=== PATIENT | male | born 1990 | race Caucasian/White ===

== ENCOUNTER 2017-02-01 22:48 | Emergency (ER) | payer MEDICARE, OTHER ==
--- NOTE | ~2017-02-01 | CR72 ---
[facility]. [facility] A Service of [facility] & [facility] / [facility] RADIOLOGY TEXT RESULTS PATIENT: RYAN SHEFFIELD JR LOCATION: SED : [birth year] UNIT #: [id number] AGE: [address]: Pop Hunter MD SEX: M ORDER DR: [id number] [place] [address] [id number] MR#: [id number] Acc #: [id number] NAME: RYAN SHEFFIELD JR : 1990 SEX: M STUDY DATE/TIME: 02/01/2017 23:27 UNIT: SED ROOM: STUDY DESCRIPTION: CR Chest Single View Portable Attending Physician: Pop Hunter M.D. Ordering Physician: Pop Hunter M.D. Primary Care Physician: Wicho Francois M.D. MEDICAL IMAGING REPORT This report is preliminary unless electronic signature is present. EXAM Portable chest INDICATIONS Cough and fever since this morning. PROCEDURE Frontal view chest. COMPARISON 12/12/2016 FINDINGS Heart size is unchanged. No dense consolidation, effusion or pneumothorax. IMPRESSION No active process. Dictated by... Skyler Moody M.D. THIS IS AN ELECTRONICALLY VERIFIED REPORT Skyler Moody M.D. at 02/02/2017 10:24 PM EED/psc TD: 02/02/2017 02:48 JOB #: [id number] MEDICAL IMAGING REPORT Page 1 of 1
[~2017-02-01 22:48] MED LIST: ABILIFY PO; ALBUTEROL17 GM INH; AMOXICILLIN PO; AMOXICILLIN875 MG PO; AMOXIL875 MG PO; BACTRIM DS TABL1 TA1 PO; BENADRYL25 M1 PO; BUSPAR PO; CLEOCIN PO; CORTISPORIN-TC10 ML AD; CYMBALTA; CYMBALTA PO; CYMBALTA30 MG PO; DEBROX OTIC DRO15 ML AS; EFFEXOR75 M2 PO; FAMOTIDINE; FLEXERIL10 MG PO; FLOMAX0.4 M1 PO; HYDROCHLOROTH12.5 MG PO; HYDROCHLOROTHIA25 MG PO; HYDROCODON-ACE1 EACH; IBUPROFEN100 MG PO; IBUPROFEN800 MG PO; KLONOPIN1 MG PO; LATUDA20 MG; LATUDA20 MG PO; LISINOPRIL5 MG; METOPROLOL TAR25 MG PO; MUCINEX DM PO; NAPROSYN375 MG PO; NEURONTIN300 MG PO; NEURONTIN600 MG; NORCO1 TAB 10/3 PO; OMEPRAZOLE40 MG PO; PAXIL PO; PHENERGAN DM1 ML PO; PREDNISONE PO; PRILOSEC PO; PRILOSEC20 MG PO; PRILOSEC40 MG PO; PRINIVIL5 MG PO; PROAIR HFA8.5 GM INH; RISPERDAL2 MG PO; RISPERIDONE PO; TORADOL10 MG PO; TRAZODONE; TRAZODONE HCL100 MG PO; TRAZODONE PO; TYLENOL #3 PO; ULTRAM PO; VISTARIL50 MG PO; VOLTAREN50 MG PO; WELLBUTRIN PO; WELLBUTRIN XL; ZITHROMAX1 G/PKT PO; ZOFRAN ODT4 MG; ZOFRAN ODT4 MG PO; ZOFRAN ODT4 MG/UDTAB PO; [UNRECOGNIZED DRUG - OTHER]; [UNRECOGNIZED DRUG - REMARK]; [UNRECOGNIZED DRUG - REMARK]
[2017-02-01 23:17] LABS: INFLUENZA A NEG (NEG); INFLUENZA B NEG (NEG)
== END 2017-02-02 00:27 | disposition home or self-care (01) ==
LOC: SED 22:48
PROVIDERS: Emergency Medicine
DX: J20.9 Acute bronchitis, unspecified (principal); J01.10 Acute frontal sinusitis, unspecified; J01.00 Acute maxillary sinusitis, unspecified; J45.909 Unspecified asthma, uncomplicated; K21.9 Gastro-esophageal reflux disease without esophagitis; F31.9 Bipolar disorder, unspecified; Z90.49 Acquired absence of other specified parts of digestive tract
CPT/HCPCS: 71010; 87651; 87804; 99283

== ENCOUNTER 2017-02-06 14:19 | Emergency (ER) | payer MEDICARE, OTHER ==
--- NOTE | ~2017-02-06 | CR63 ---
[facility]. [facility] A Service of [facility] & [facility] RADIOLOGY TEXT RESULTS PATIENT: RYAN SHEFFIELD JR LOCATION: SED : [birth year] UNIT #: [id number] AGE: [address]: Virginia Norton SEX: M ORDER DR: [id number] [address] [address] [id number] MR#: [id number] Acc #: [id number] NAME: RYAN SHEFFIELD JR : 1990 SEX: M STUDY DATE/TIME: 02/06/2017 14:23 UNIT: SED ROOM: STUDY DESCRIPTION: CR Chest 2 View Attending Physician: Virginia Norton Pa-C Referring Physician: Virginia Norton Pa-C Ordering Physician: Physician Non-Staff Primary Care Physician: Wicho Francois M.D. MEDICAL IMAGING REPORT This report is preliminary unless electronic signature is present. EXAM PA and lateral chest radiograph. HISTORY SUPPLIED Cough, nasal drainage and wheezing for 1 week. FINDINGS PA and lateral views are obtained. The cardiovascular configuration remains normal and the lungs are clear. CONCLUSION 1. Normal chest. Dictated by... Jose Guzman M.D. THIS IS AN ELECTRONICALLY VERIFIED REPORT Jose Guzman M.D. at 02/07/2017 5:02 PM WINSTON/reed TD: 02/06/2017 18:53 JOB #: [id number] MEDICAL IMAGING REPORT Page 1 of 1
== END 2017-02-06 15:36 | disposition home or self-care (01) ==
LOC: SED 14:19
DX: J40 Bronchitis, not specified as acute or chronic (principal)
CPT/HCPCS: 71020; 94640; 96372; 99284; J1100

== ENCOUNTER 2017-02-08 19:15 | Emergency (ER) | payer MEDICARE, OTHER | END 2017-02-08 19:36 | disposition home or self-care (01) | LOC: SED 19:15 | DX: J20.9 Acute bronchitis, unspecified (principal); F41.9 Anxiety disorder, unspecified; F32.9 Major depressive disorder, single episode, unspecified; Z79.899 Other long term (current) drug therapy | CPT/HCPCS: 99282 ==

== ENCOUNTER 2017-02-16 23:27 | Emergency (ER) | payer MEDICARE, OTHER | END 2017-02-17 00:07 | disposition home or self-care (01) | LOC: SED 23:27 | DX: J40 Bronchitis, not specified as acute or chronic (principal); I10 Essential (primary) hypertension; F41.8 Other specified anxiety disorders; R00.0 Tachycardia, unspecified; K21.9 Gastro-esophageal reflux disease without esophagitis; Z90.49 Acquired absence of other specified parts of digestive tract; Z98.890 Other specified postprocedural states | CPT/HCPCS: 99282 ==

== ENCOUNTER 2017-06-19 17:02 | Emergency (ER) | payer OTHER, MEDICARE ==
--- NOTE | ~2017-06-19 | CR181 ---
[facility]. [facility] A Service of [facility] & [facility] RADIOLOGY TEXT RESULTS PATIENT: RYAN SHEFFIELD JR LOCATION: SED : [birth year] UNIT #: [id number] AGE: [address]: VINOD MCCULLOUGH SEX: M ORDER DR: [id number] [address] [address] [id number] E MR#: [id number] Acc #: [id number] NAME: RYAN SHEFFIELD JR : 1990 SEX: M STUDY DATE/TIME: 06/19/2017 17:16 UNIT: SED ROOM: STUDY DESCRIPTION: CR Lumbar Spine 2 or 3 Views Attending Physician: Vinod Mccullough Ordering Physician: Vinod Mccullough Primary Care Physician: Wicho Francois M.D. MEDICAL IMAGING REPORT This report is preliminary unless electronic signature is present. EXAM Three views lumbar spine. DATE 06/19/2017 HISTORY Lumbar spine pain after sitting on bed. FINDINGS AP and lateral projections of the lumbar segment show good mineralization of both anterior and posterior elements. They are all anatomically normal without indication of fracture, dislocation, or malignant change of a sclerotic or lytic type. There is no congenital defect noted. The sacroiliac joints are normal. IMPRESSION Normal 3 views of lumbar spine. Dictated by... Marilee Louise M.D. THIS IS AN ELECTRONICALLY VERIFIED REPORT Marilee Louise M.D. at 06/20/2017 9:55 AM LLH/psc TD: 06/19/2017 21:37 JOB #: [id number] MEDICAL IMAGING REPORT Page 1 of 1
== END 2017-06-19 18:39 | disposition home or self-care (01) ==
LOC: SED 17:02
DX: S39.012A Strain of muscle, fascia and tendon of lower back, initial encounter (principal); I10 Essential (primary) hypertension; K21.9 Gastro-esophageal reflux disease without esophagitis; F32.9 Major depressive disorder, single episode, unspecified; Z79.899 Other long term (current) drug therapy; F41.9 Anxiety disorder, unspecified; X50.1XXA Overexertion from prolonged static or awkward postures, initial encounter
CPT/HCPCS: 72100; 96372; 99283; J1885; J2360